=== PATIENT | male | born 1950 | race Two or more races ===

== ENCOUNTER 2024-03-26 15:43 | Emergency (ER) | payer MEDICARE ==
[~2024-03-26] VITALS: Ht 175.3 cm; Wt 64.0 kg
[2024-03-26] MEDS ORDERED: ETOMIDATE 2 MG/ML VIAL IV ONE (15:47)
[2024-03-26] MEDS: IV NS 0.9% 1,000 ML BAG IV ONE (16:00)
[2024-03-26] MEDS: PROPOFOL 100 ML IV PRN (16:11)
[2024-03-26] MEDS ORDERED: PROPOFOL 100 ML ONE (16:11)
[2024-03-26 16:19] LABS: BASOPHILS % (AUTO) 0.2 % (0.0-2.0); EOSINOPHILS % (AUTO) 0.1 % (0.0-6.0); HEMATOCRIT 54 % (39-51); HEMOGLOBIN 17.1 g/dL (13.5-17.5); LYMPHOCYTES # (AUTO) 0.7 K/uL (0.8-4.8); MEAN CORPUSCULAR HEMOGLOBIN 29 PG (26.0-33.0); MEAN CORPUSCULAR HGB CONC 32 g/dl (31.0-36.0); MEAN CORPUSCULAR VOLUME 92 fL (80-96); MONOCYTES # (AUTO) 0.4 K/uL (0.1-1.30); MONOCYTES % (AUTO) 5.6 % (2.0-12.0); NEUTROPHILS # (AUTO) 6.7 K/uL (1.8-8.9); NEUTROPHILS % (AUTO) 85.1 % (43.0-81.0); PLATELET COUNT (AUTO) 327 K/uL (150-450); RED BLOOD CELL COUNT(AUTO) 5.86 MIL/uL (4.5-6.0); RED CELL DISTRIBUTION WIDTH 13.5 % (11.5-15.0); WHITE BLOOD COUNT (AUTO) 7.9 K/uL (4.3-11.0)
[2024-03-26] MEDS: PIPERACILLIN /TAZOBACTAM 3.375 G in IV D5W 50 ML IV ONE (16:30)
[2024-03-26] MEDS ORDERED: PROPOFOL 200 MG/20 ML VIAL IV ONE (16:30)
[2024-03-26 16:35] LABS: CALCIUM, SERUM 9.6 mg/dL (8.5-10.1); CARBON DIOXIDE 26 mmol/L (21-32); CHLORIDE 119 mmol/L (98-107); CREATININE 2.9 mg/dL (0.6-1.3); GLUCOSE 226 mg/dL (74-106)
[2024-03-26] MEDS ORDERED: NOREPINEPHRINE 8MG/250ML RTU 0 ML IV ONE (16:38)
[2024-03-26 16:40] LABS: ALANINE AMINOTRANSFERASE 168 U/L (12-78); ALBUMIN 2.5 g/dL (3.4-5.0); ALKALINE PHOSPHATASE 86 U/L (46-116); ASPARTATE AMINOTRANSFERASE 122 U/L (15-37); BILIRUBIN,DIRECT 0.5 mg/dL (0.0-0.2); BILIRUBIN,TOTAL 1.2 mg/dL (0.2-1.0); TOTAL PROTEIN, SERUM 7.4 g/dL (6.4-8.2)
[2024-03-26] MEDS: AZITHROMYCIN 500 MG in IV D5W 250 ML IV ONE (16:50)
[2024-03-26 16:56] LABS: MAGNESIUM 4.6 mg/dL (1.8-2.4)
[2024-03-26 16:57] LABS: SODIUM SERUM 163 mmol/L (136-145); UREA NITROGEN, BLOOD 120 mg/dL (7-18)
[2024-03-26 17:01] LABS: LACTIC ACID 5.6 mmol/L (0.4-2.0)
[2024-03-26 17:02] LABS: ABG BASE EXCESS -9.4 mmol/L (-2.0-3.0); ABG OXYGEN SATURATION 95.7 % (94.0-98.0); ABG PCO2 64.8 mmHg (35.0-48.0); ABG PH 7.125 (7.350-7.450); ABG PO2 104.2 mmHg (83.0-108.0); ABG TOTAL HEMOGLOBIN 14.6 G/dL (13.5-17.5); COHb 0.3 % (0.5-1.5); MetHb 0.4 % (0.0-1.5); PEEP,BG 8 cm H2O
[2024-03-26] MEDS: VANCOMYCIN 1 GM in IV D5W 250 ML IV ONE (17:05)
[2024-03-26 17:23] LABS: APPEARANCE,URINE CLEAR (CLEAR); BILIRUBIN,URINE 2+ (NEGATIVE); BLOOD, URINE TRACE-INTA Ery/uL (NEGATIVE); COLOR,URINE YELLOW (YELLOW); KETONES,URINE TRACE mg/dL (NEGATIVE); LEUKOCYTE ESTERASE ,URINE NEGATIVE (NEGATIVE); NITRITE, URINE NEGATIVE (NEGATIVE); PROTEIN,URINE 1+ mg/dl (NEGATIVE); UGLUCOSE NEGATIVE (NEGATIVE)
[2024-03-26 17:31] LABS: INR 1.26 (0.91-1.10); PARTIAL THROMBOPLASTIN TIME 23.6 SEC (24.3-34.3); PROTHROMBIN TIME 13.2 SECS (9.2-11.1)
[2024-03-26 17:40] LABS: RBC,URINE 0-2 /HPF (0-2); WBC,URINE NONE SEEN /HPF (0-3)
[2024-03-26 17:41] LABS: ADD URINE CULTURE NO; BACTERIA,URINE Few /HPF (None Seen); COARSE GRANULAR CASTS,URINE Few /LPF (None Seen); HYALINE CASTS, URINE Few /LPF (None Seen); SQUAMOUS EPITHELIAL CELL,UR Few /HPF (None Seen)
[2024-03-26 17:42] LABS: MUCUS,URINE Few /LPF (None Seen)
[2024-03-26] MEDS: LEVETIRACETAM (500MG) 500 MG in IV NS 0.9% 100 ML IV SCH (18:52)
[2024-03-26] MEDS: IV NS 0.9% 500 ML BAG IV ONE (22:11)
[2024-03-26] MEDS ORDERED: NOREPINEPHRINE 8MG/250ML RTU 250 ML IV ONE (23:06)
[2024-03-26] MEDS: NOREPINEPHRINE 8 MG in IV NS 0.9% 250 ML IV ONE (23:13)
[2024-03-27 01:18] VITALS: BP 117/91; O2SAT 98
[2024-03-27] MEDS ORDERED: NOREPINEPHRINE 8MG/250ML RTU 250 ML IV ONE (01:36)
== END 2024-03-27 02:10 | disposition short-term general hospital (02) ==
LOC: ER 15:46 → ICU 17:12 → UNDOADMIN 17:12
DX: I62.00 Nontraumatic subdural hemorrhage, unspecified (principal); I10 Essential (primary) hypertension; F41.9 Anxiety disorder, unspecified; Z20.822 Contact with and (suspected) exposure to COVID-19
CPT/HCPCS: 99291; 94002; 31500; 72125; 96365; 71045; 96367; 87426; 96368; 93005; 82803; 70450; 84145; 85025; 80048; 82550; 87040; 87086; 83605 ×2; 80076; 83735; 81001; 36415; 84484 ×2; 85730; 86850; 82962; 36600; 82553; J0330; J3370; J2543; J7060; J7030 ×3; J7050; J3490 ×2; J1953; G0378